=== PATIENT | male | born 1960 | race Caucasian/White ===

== ENCOUNTER 2016-07-31 14:45 | Outpatient (RCR) | payer MEDICAID | END 2016-08-03 | disposition home or self-care (01) | LOC: MKS.ESL.PT | DX: Z47.89 Encounter for other orthopedic aftercare (principal); M25.862 Other specified joint disorders, left knee | CPT/HCPCS: G0283-GP ==

== ENCOUNTER → 2016-08-18 | Outpatient (CLI) | payer MEDICAID ==
[2016-08-18 11:30] LABS: HEMATOCRIT 49.7 % (42.0-52.0); HEMOGLOBIN 16.6 g/dl (13.5-18.0); MEAN CELL VOLUME 92 fl (80.0-100.0); MEAN CORPUSCULAR HEMOGLOBIN 31 pg (27.0-31.0); MEAN CORPUSCULAR HGB CONC 33 g/dl (33.0-37.0); MEAN PLATELET VOLUME 10.3 fl (7.4-10.4); PLATELET COUNT 165 K/mm3 (130-400); RED BLOOD COUNT 5.42 M/mm3 (4.20-5.60); REDCELL DISTRIBUTION WIDTH-CV 15.1 % (11.5-14.5)
[2016-08-18 12:06] LABS: ERYTHROCYTE SEDIMENTATION RATE 2 mm/hr (0-30)
== END ==
LOC: COL.LAB 10:38
PROVIDERS: Orthopaedic Surgery Sports Medicine
DX: M25.562 Pain in left knee (principal); Z47.1 Aftercare following joint replacement surgery

== ENCOUNTER 2016-09-11 14:45 | Outpatient (RCR) | payer MEDICAID | END 2016-09-19 14:20 | disposition home or self-care (01) | LOC: MKS.ESL.PT 14:45 | DX: Z47.89 Encounter for other orthopedic aftercare (principal); M25.862 Other specified joint disorders, left knee | CPT/HCPCS: G0283-GP ==

== ENCOUNTER 2016-12-04 14:00 | Outpatient (RCR) | payer MEDICAID | END 2016-12-08 13:27 | disposition home or self-care (01) | LOC: MKS.ESL.PT 14:00 | DX: Z47.89 Encounter for other orthopedic aftercare (principal); M17.12 Unilateral primary osteoarthritis, left knee ==

== ENCOUNTER 2022-02-20 10:12 | Emergency (ER) | payer MEDICARE, MEDICAID ==
[~2022-02-20] VITALS: Ht 180.3 cm; Wt 104.5 kg
[2022-02-20 10:54] VITALS: TEMP 97.8
[2022-02-20] MEDS ORDERED: VIIBRYD20 MG PO (10:58)
[2022-02-20] MEDS ORDERED: ABILIFY5 MG PO (10:58)
[2022-02-20] MEDS ORDERED: INDERAL40 MG PO (10:59)
[2022-02-20] MEDS ORDERED: ATROVENT INHALE14 GM IH (11:00)
[2022-02-20] MEDS ORDERED: ZYLOPRIM 300MG300 MG PO (11:00)
[2022-02-20 12:09] LABS: BASO % 0.4 % (0.0-2.0); EOS # 0.2 K/mm3 (0.0-0.7); EOS % 3.6 % (0.0-4.0); GRAN # 2.4 K/mm3 (1.4-6.5); GRAN % 44.6 % (42.2-75.2); HEMATOCRIT 45.8 % (42.0-52.0); LYMPH # 1.8 K/mm3 (1.2-3.4); LYMPH % 34.5 % (20.0-51.0); MEAN CELL VOLUME 98 fl (80.0-100.0); MEAN CORPUSCULAR HEMOGLOBIN 34 pg (27-31); MEAN CORPUSCULAR HGB CONC 35 g/dl (33.0-37.0); MONO # 0.9 K/mm3 (0.1-0.6); MONO % 16.5 % (1.7-9.3); PLATELET COUNT 156 K/mm3 (130-400); RED BLOOD COUNT 4.67 M/mm3 (4.20-5.60)
[2022-02-20 12:28] LABS: ALBUMIN 3.5 gm/dL (3.4-4.8); BILIRUBIN,TOTAL 0.6 mg/dL (0.2-1.2); CALCIUM 9.4 mg/dL (8.4-10.2); CREATININE, serum 0.88 mg/dL (0.72-1.25); POTASSIUM 4.3 mmol/L (3.5-4.5); TOTAL PROTEIN 7.2 gm/dL (6.2-8.1)
[2022-02-20 12:40] LABS: ERYTHROCYTE SEDIMENTATION RATE 22 mm/hr (0-30)
[2022-02-20] MEDS ORDERED: AMOXICILLIN875 MG PO (12:44)
[2022-02-20 13:28] VITALS: BP 133/70; PULSE 45
== END 2022-02-20 13:28 | disposition home or self-care (01) ==
LOC: COL.ER 10:12
PROVIDERS: Physician Assistant
DX: U07.1 COVID-19 (principal)
CPT/HCPCS: J1200; J1885; J2765; J7030; M0222; Q0222

== ENCOUNTER 2023-07-07 08:30 | Outpatient (RCR) | payer MEDICARE, MEDICAID ==
[~2023-07-07 08:30] MED LIST: ABILIFY5 MG PO; AMOXICILLIN875 MG PO; ATROVENT INHALE14 GM IH; INDERAL40 MG PO; VIIBRYD20 MG PO; ZYLOPRIM 300MG300 MG PO
== END 2023-07-08 | disposition home or self-care (01) ==
LOC: MKS.ESL.PT
DX: M25.511 Pain in right shoulder (principal)

== ENCOUNTER → 2023-08-06 | Outpatient (RCR) | payer MEDICARE, MEDICAID | END | disposition home or self-care (01) | LOC: MKS.ESL.PT | DX: M25.511 Pain in right shoulder (principal) ==

== ENCOUNTER 2023-08-11 08:36 | Outpatient (RCR) | payer MEDICARE, MEDICAID | END 2023-09-06 | disposition home or self-care (01) | LOC: MKS.ESL.PT | DX: M25.511 Pain in right shoulder (principal) ==